=== PATIENT | male | born 1975 | race Caucasian/White ===

== ENCOUNTER → 2021-09-02 09:17 | Outpatient (BNVA) | payer OTHER, SELFPAY | PROVIDERS: PCP Nurse Practitioner Family; Visit Provider Family Medicine | DX: Z02.83 Encounter for blood-alcohol and blood-drug test (principal); S29.8XXA Other specified injuries of thorax, initial encounter; X58.XXXA Exposure to other specified factors, initial encounter | CPT/HCPCS: 71046; 71100; 80307 ==

== ENCOUNTER 2021-09-11 14:47 | Emergency (ER) | payer OTHER, SELFPAY ==
[2021-09-11 14:52] VITALS: BP 127/91; PULSE 85; RESP 15; TEMP 36.9; O2SAT 100; BMI 22.4
[2021-09-11 14:56] VITALS: BP 140/103; PULSE 82; RESP 15; TEMP 37; O2SAT 98
--- NOTE | 2021-09-11 15:17 | CTR_ITS ---
PROCEDURE INFORMATION: Exam: CT Abdomen And Pelvis With Contrast Exam date and time: 09/11/2021 3:17 PM Age: 46 years old Clinical indication: Constipation and nausea; Patient HX: Periumbillical pain for 2 days, n/v x 1 day, consipation x 1 day; Additional info: Centralized abdominal pain and nausea TECHNIQUE: Imaging protocol: Computed tomography of the abdomen and pelvis with contrast. Contrast material: OMNI 300; Contrast volume: 95 ml; Contrast route: INTRAVENOUS (IV); COMPARISON: CR XR ribs LT 2V* [id number] 09/02/2021 10:13 AM RADIATION DOSE METRICS: Total DLP (mGy-cm): 1188.44 FINDINGS: Liver: Multiple fluid density cysts in the liver, Hounsfield units less than 20. Additional hypodensities in the liver are too small to characterize but are most likely cysts as well. 1.5 cm low-density nodule in the left liver lobe, Hounsfield units measuring 50. Gallbladder and bile ducts: Normal. No calcified stones. No ductal dilation. Pancreas: Normal. No ductal dilation. Spleen: Normal. No splenomegaly. Adrenal glands: Normal. No mass. Kidneys and ureters: Fluid density cyst in the inferior left kidney, Hounsfield units less than 20. Additional hypodensities in both kidneys are too small to characterize but are likely cysts. No follow-up imaging is recommended. No renal calculus or hydronephrosis. Stomach and bowel: Scattered gas and stool throughout the colon to the rectum. The largest amount of stool is within the descending and sigmoid colon. The stomach and small bowel are unremarkable. No wall thickening or obstruction. Appendix: Multiple calcified appendicoliths in an otherwise unremarkable appendix. No periappendiceal fat stranding. Intraperitoneal space: Unremarkable. No free air. No significant fluid collection. Vasculature: Unremarkable. Lymph nodes: Prominent mesenteric lymph nodes are most likely reactive. Urinary bladder: Unremarkable as visualized. Reproductive: Enlarged prostate measuring 5.8 cm. Bones/joints: Unremarkable. No acute fracture. Soft tissues: Unremarkable. CT/CT abdomen pelvis w con* [id number] IMPRESSION: 1. No acute abnormality identified in the abdomen or pelvis. 2. Stool burden in the colon could indicate constipation in the right clinical setting. 3. Indeterminate 1.5 cm nodule in the left liver lobe. Further evaluation with non-emergent liver MRI is recommended. 4. Multiple calcified appendicoliths within an otherwise normal appearing appendix. COMMENTS: Consistent with the [employer]'s Incidental Findings Committee white paper (J Am Lisa Radiol 2018): Any incidental renal lesion less than 1 cm or classified as too small to characterize, or any incidental cystic renal lesion characterized as simple-appearing, is likely benign. No follow-up imaging is recommended for these lesions per consensus recommendations based on imaging criteria. Radiation Dose CTDIVOL = (mGy): DLP = 1188.44 (mGy-cm)
--- NOTE | 2021-09-11 15:19 | W.ED.ABDPA2 ---
HPI - Abdominal Pain General: Chief Complaint: Abdominal Pain Stated Complaint: Abdominal Pain Time Seen by Provider: 09/11/21 15:01 History of Present Illness: HPI narrative: Patient is a 46-year-old male who comes to the ED with abdominal pain. Pain started yesterday. Pain is located in the periumbilical and epigastric region of the abdomen. He rates the pain currently a 5 out of 10. He denies any past symptoms like this. He also reports having some nausea and had an episode of emesis this morning when he woke up. He has had decreased appetite and only drink about half a water bottle today. Patient also endorses being constipated and is unsure when his last bowel movement occurred. Patient says he took a stool softener this morning and it did not help him have a bowel movement. Denies any fever, chills, chest pain, shortness of breath, diarrhea or bladder symptoms. Associated Symptoms: Reports constipation, nausea and vomiting; Denies chills, diarrhea, dysuria, fever(s), hematochezia and hematuria Review of Systems Const: Reports: change in appetite (Decreased); Denies: fever(s), chills or fatigue Eyes: Denies: change in vision or eye discomfort ENMT: Denies: throat pain, odynophagia, nasal discharge or nasal congestion Card: Denies: chest pain, palpitations, edema, swelling of feet/ankles, dyspnea on exertion or orthopnea Resp: Denies: dyspnea, productive cough or non-productive cough GI: Reports: abdominal pain, nausea, vomiting and constipation; Denies: diarrhea or hematochezia : Denies: flank pain, difficulty urinating, dysuria or hematuria Musc: Denies: neck pain, back pain or extremity swelling Skin/Breast: Denies: rash or new lesions Neuro: Denies: headache(s), numbness in extremities or weakness in extremities PFS ED PFSH: Medical History Psychiatric care Social History Smoking and tobacco status: never smoked Second hand smoke exposure: No Physical Exam Const: COMMON NORMALS: no acute distress, patient oriented x3, healthy appearing and alert GENERAL APPEARANCE: cooperative and comfortable HENMT: COMMON NORMALS: normocephalic HEAD & SCALP: normocephalic MOUTH: Normal oral and palatal mucosa present THROAT: posterior oropharynx normal and uvula midline Eye: COMMON NORMALS: Equal, round and reactive pupils present PUPIL: Yes Equal, round and reactive pupils present Neck/C-Spine: COMMON NORMALS: supple GENERAL: Yes normal visual inspection Resp: COMMON NORMALS: normal respiratory effort, No retractions, No use of accessory muscles and clear to auscultation bilaterally AUSCULTATION: clear to auscultation bilaterally Cardio: COMMON NORMALS: regular rate, regular rhythm, S1 normal heart sound present, S2 normal heart sound present, No gallops present (Cardio), No clicks present (Cardio), No murmurs present (Cardio) and Peripheral pulses 2+ throughout RATE: regular rate RHYTHM: regular rhythm HEART SOUNDS: S1 normal heart sound present and S2 normal heart sound present PERIPHERAL PULSES: Peripheral pulses 2+ throughout GI: COMMON NORMALS: Normal to inspection, nondistended, normoactive bowel sounds present, Soft to palpation and no masses PALPATION: Yes Soft to palpation and Yes Tenderness to palpation present (GI) Details: other (Epigastric and periumbilical tenderness) : COMMON NORMALS: Yes no CVA tenderness BLADDER/KIDNEY EXAM: Yes no CVA tenderness Back/Pelvis: COMMON NORMALS: no CVA tenderness Extremity: COMMON NORMALS: normal to inspection Neuro: COMMON NORMALS: patient oriented x3 SENSORIUM/ORIENTATION: Yes alert GAIT: Yes Normal gait present Skin: GENERAL SKIN EXAM: dry skin Course Vital Signs: Vital signs: Vital Signs Temperature 98.6 F 09/11/21 15:26 Pulse Rate 82 09/11/21 14:56 Respiratory Rate 15 09/11/21 14:56 Blood Pressure 140/103 09/11/21 14:56 Pulse Oximetry 98 09/11/21 14:56 MDM - Abdominal Pain MDM Narrative: Medical decision making narrative: Patient is a 46-year-old male comes to the ED with abdominal pain and constipation. Vitals are stable. Patient appears nontoxic in no acute distress. He has some mild epigastric and periumbilical tenderness to palpation. The rest of exam is benign. Labs are unremarkable. CT of abdomen pelvis showed no acute intra-abdominal findings but noted large amount of stool in colon. And also noted liver mass was 1.5 cm in size and recommended an outpatient MRI for further evaluation. I told patient about CT findings and the liver mass and told him to discuss findings with his PCP and his PCP can get outpatient MRI set up form. Patient was diagnosed with constipation and discharged home with a prescription for MiraLAX. I told to continue taking his stool softener as well. He has an appointment with his PCP on September 15 for follow-up. Return ED precautions given. Patient understood and agreed with plan. Lab Data: Attestation: I reviewed the patient's lab results. Labs: Lab Results 09/11/21 09/11/21 09/11/21 15:50 15:50 15:50 WBC 8.4 10^3/uL 10^3/ uL (4.0-10.0) RBC 5.81 10^6/uL H 10 ^6/uL (4.1-5.3) Hgb 16.5 g/dL g/dL (11.7-16.6) Hct 49.9 % % (42.0-52.0) MCV 85.9 fl fl (80-94) MCH 28.4 pg pg (28.0-34.0) MCHC 33.1 g/dL g/dL (30.0-36.0) RDW 12.9 % % (12.1-15.1) Plt Count 209 10^3/cmm 10^3 /cmm (130-400) MPV 9.9 fL fL (7.4-10.4) Neut % (Auto) 66.0 % % Lymph % (Auto) 20.1 % % Coffee % (Auto) 12.7 % % Eos % (Auto) 0.4 % % Baso % (Auto) 0.4 % % Neut # (Auto) 5.57 10^3/uL 10^3 /uL (1.8-7.7) Lymph # (Auto) 1.7 10^3/uL 10^3/ uL (0.8-4.8) Coffee # (Auto) 1.1 10^3/uL H 10^ 3/uL (0.2-0.9) Eos # (Auto) 0.0 10^3/uL 10^3/ uL (0.0-0.8) Baso # (Auto) 0.0 10^3/uL 10^3/ uL (0.0-0.1) Nucleated RBC % (a uto) 0 % % Nucleated RBCs # 0.0 /100WBC /100W BC Sodium 136 mmol/L mmol/L (136-145) Potassium 4.1 mmol/L mmol/L (3.5-5.1) Chloride 100 mmol/L mmol/L (98-107) Carbon Dioxide 29 mmol/L mmol/L (22-29) Anion Gap 11.1 (5-19) BUN 9 mg/dL mg/dL (6-20) Creatinine 0.7 mg/dL mg/dL (0.7-1.2) GFR Calculation 122.0 mL/min mL/m in (90-130) Glucose 91 mg/dL mg/dL (65-115) Calculated Osmolal ity 280 mOsm/kg L mOs m/kg (285-295) Calcium 11.5 mg/dL H mg/d L (8.5-10.5) Total Bilirubin 0.4 mg/dL mg/dL (0.15-1.2) AST 16 U/L U/L (0-40) ALT 16 U/L U/L (0-41) Alkaline Phosphata se 119 IU/L IU/L (40-130) Total Protein 7.3 g/dL g/dL (6.6-8.7) Albumin 4.3 g/dL g/dL (3.5-5.2) Globulin 3.0 g/dL g/dL (1.3-4.6) Lipase 19 U/L U/L (13-60) Urine Color Yellow (Yellow) Urine Appearance Hazy A (CLEAR) Urine pH 5 (5-7) Ur Specific Gravit y 1.030 (1.005-1.030) Urine Protein Neg (Negative) Urine Glucose (UA) Norm (Normal) Urine Ketones Negative (Negative) Urine Blood 2+ H (Negative) Urine Nitrate Negative (Negative) Urine Bilirubin 1+ H (Negative) Urine Urobilinogen 1 mg/dL H mg/dL (Negative) Ur Leukocyte Darby ase Negative (Negative) Urine RBC 0-4 /hpf H /hpf (0-2) Urine WBC 0-4 /hpf H /hpf (0-5) Ur Squamous Epith Cells 0-4 /hpf H /hpf (0-5) Calcium Oxalate Cr ystal 5-10 /hpf H /hpf Amorphous Sediment Not Reportable Urine Bacteria Trace /hpf /hpf (NONE) Urine Mucus 2+ /hpf /hpf Imaging Data ^: CT Abd/Pel: Attestation: I personally reviewed and interpreted this imaging study as follows: Radiologist's impression: [facility] [address] [place] [address] CT Scan Report Signed Patient: Mani Kaiser Unit #: [id number] : [id number] Age/Sex: 46 / M ADM Date: 09/11/21 Loc: ER Room/Bed: Attending Dr: Ordering Provider/Ordering MD: Tahir Patel Date of Service: 09/11/21 Procedure(s): CT abdomen pelvis w con* [id number] Accession Number(s): [id number] Report Number: [id number] PROCEDURE INFORMATION: Exam: CT Abdomen And Pelvis With Contrast Exam date and time: 09/11/2021 3:17 PM Age: 46 years old Clinical indication: Constipation and nausea; Patient HX: Periumbillical pain for 2 days, n/v x 1 day, consipation x 1 day; Additional info: Centralized abdominal pain and nausea TECHNIQUE: Imaging protocol: Computed tomography of the abdomen and pelvis with contrast. Contrast material: OMNI 300; Contrast volume: 95 ml; Contrast route: INTRAVENOUS (IV); COMPARISON: CR XR ribs LT 2V* [id number] 09/02/2021 10:13 AM RADIATION DOSE METRICS: Total DLP (mGy-cm): 1188.44 FINDINGS: Liver: Multiple fluid density cysts in the liver, Hounsfield units less than 20. Additional hypodensities in the liver are too small to characterize but are most likely cysts as well. 1.5 cm low-density nodule in the left liver lobe, Hounsfield units measuring 50. Gallbladder and bile ducts: Normal. No calcified stones. No ductal dilation. Pancreas: Normal. No ductal dilation. Spleen: Normal. No splenomegaly. Adrenal glands: Normal. No mass. Kidneys and ureters: Fluid density cyst in the inferior left kidney, Hounsfield units less than 20. Additional hypodensities in both kidneys are too small to characterize but are likely cysts. No follow-up imaging is recommended. No renal calculus or hydronephrosis. Stomach and bowel: Scattered gas and stool throughout the colon to the rectum. The largest amount of stool is within the descending and sigmoid colon. The stomach and small bowel are unremarkable. No wall thickening or obstruction. Appendix: Multiple calcified appendicoliths in an otherwise unremarkable appendix. No periappendiceal fat stranding. Intraperitoneal space: Unremarkable. No free air. No significant fluid collection. Vasculature: Unremarkable. Lymph nodes: Prominent mesenteric lymph nodes are most likely reactive. Urinary bladder: Unremarkable as visualized. Reproductive: Enlarged prostate measuring 5.8 cm. Bones/joints: Unremarkable. No acute fracture. Soft tissues: Unremarkable. CT/CT abdomen pelvis w con* [id number] IMPRESSION: 1. No acute abnormality identified in the abdomen or pelvis. 2. Stool burden in the colon could indicate constipation in the right clinical setting. 3. Indeterminate 1.5 cm nodule in the left liver lobe. Further evaluation with non-emergent liver MRI is recommended. 4. Multiple calcified appendicoliths within an otherwise normal appearing appendix. COMMENTS: Consistent with the [employer]'s Incidental Findings Committee white paper (J Am Lisa Radiol 2018): Any incidental renal lesion less than 1 cm or classified as too small to characterize, or any incidental cystic renal lesion characterized as simple-appearing, is likely benign. No follow-up imaging is recommended for these lesions per consensus recommendations based on imaging criteria. Radiation Dose CTDIVOL = (mGy): DLP = 1188.44 (mGy-cm) Dictated By: Ga Koenig Signed By: Ga Koenig Signed Date/Time: 09/11/21 1651 DD/ [id number] Discharge Plan Discharge Patient Disposition: Home Clinical Impression: Constipation Qualifiers: Constipation type: unspecified constipation type Qualified Code(s): K59.00 - Constipation, unspecified Condition: Stable Prescriptions: New Miralax 17 gram/dose powder 17 g PO DAILY 4 Days Qty: 119 RF: 0 ondansetron 4 mg tablet,disintegrating 4 mg PO Q8H PRN (Reason: nausea and vomiting) Qty: 15 RF: 0 No Action hydrocodone-acetaminophen 5-325 mg tablet 1 tab PO BID PRN (Reason: pain) 7 Days Qty: 14 RF: 0 Active-Pk Caps 2 cap PO QAM RF: 0 Tylenol Ex Str Rapid Release 500 mg Tablet 1,000 mg PO Q4H PRN (Reason: Pain) RF: 0 Discharge Orders: Discharge ED (Routine); Ordered 09/11/21 Ordered By: Tahir Patel Referrals: TYRELL Hoff, [employer] [Primary Care Provider] - Discharge Diet: Regular Discharge Activity: Increase activity as tolerated Patient Instructions: Constipation (DC), High Fiber Diet (ED) Activity Restrictions/Additional Instructions: Follow-up with medical provider as directed at your next scheduled appointment with your PCP this coming Wednesday. Continue taking your stool softener. take medications as prescribed. Drink plenty of fluids and stay hydrated. Return to the ER or your medical provider if condition worsens. Please read and understand discharge instructions. Thank you for choosing [facility] for your healthcare needs today. Please realize this is an emergency room and that we are providing you with a medical screening exam and this may not be complete and all inclusive of all the testing and or work up that you may need to determine your ailment or severity of your illness. It is very important that you follow up as instructed or that you return to the Emergency Department should you have concerns or if your condition changes or worsens in any way. Coding Level of Care Code ED [facility] for Jesica Roberson Exam Comprehensive
[2021-09-11 15:26] VITALS: TEMP 37
[2021-09-11] MEDS: iohexol 300 mg/mL 100 mL Btl IV (16:07)
[2021-09-11 16:11] LABS: Basophils % 0.4 %; Eosinophils % 0.4 %; Hematocrit 49.9 % (42.0-52.0); Hemoglobin 16.5 g/dL (11.7-16.6); Lymphocytes # 1.7 10^3/uL (0.8-4.8); Lymphocytes % 20.1 %; Mean Corpuscular HGB Conc 33.1 g/dL (30.0-36.0); Mean Corpuscular Hemoglobin 28.4 pg (28.0-34.0); Mean Corpuscular Volume 85.9 fl (80-94); Mean Platelet Volume 9.9 fL (7.4-10.4); Monocytes # 1.1 10^3/uL (0.2-0.9); Monocytes % 12.7 %; Neutrophils # 5.57 10^3/uL (1.8-7.7); Nucleated Red Blood Cells % 0 %; Platelet Count 209 10^3/cmm (130-400); Red Blood Count 5.81 10^6/uL (4.1-5.3); Red Cell Distribution Width 12.9 % (12.1-15.1); White Blood Count 8.4 10^3/uL (4.0-10.0)
[2021-09-11 16:27] LABS: Alanine Aminotransferase 16 U/L (0-41); Albumin Level 4.3 g/dL (3.5-5.2); Alkaline Phosphatase 119 IU/L (40-130); Anion Gap 11.1 (5-19); Aspartate Amino Transferase 16 U/L (0-40); Blood Urea Nitrogen 9 mg/dL (6-20); Calcium 11.5 mg/dL (8.5-10.5); Carbon Dioxide 29 mmol/L (22-29); Chloride 100 mmol/L (98-107); Creatinine Clr Calc Pharmacy 148.5023; Glucose 91 mg/dL (65-115); Lipase 19 U/L (13-60); Osmolality Calculated 280 mOsm/kg (285-295); Potassium 4.1 mmol/L (3.5-5.1); Sodium 136 mmol/L (136-145); Total Bilirubin 0.4 mg/dL (0.15-1.2); Total Protein 7.3 g/dL (6.6-8.7)
[2021-09-11] MEDS: sodium chloride 0.9% 1,000 ML 999 ML IV (16:38)
[2021-09-11 16:44] LABS: Blood Urine 2+ (Negative); Glucose Urine UA Norm (Normal); Ketones Urine Negative (Negative); Protein Urine Neg (Negative); Urine Appearance Hazy (CLEAR); Urine Color Yellow (Yellow); pH Urine 5 (5-7)
[2021-09-11 16:45] LABS: Add Urine Culture? No; Add Urine Microscopic? YES; Bacteria Urine TRACE /hpf; Bilirubin Urine 1+ (Negative); Leukocyte Esterase Urine Negative (Negative); Mucus Urine 2+ /hpf; Nitrate Urine Negative (Negative); RBC Urine 0-4 /hpf (0-2); Squamous Epithelial Cell Urine 0-4 /hpf (0-5); Urobilinogen Urine 1 mg/dL (Negative); WBC Urine 0-4 /hpf (0-5)
== END 2021-09-11 17:39 | disposition home or self-care (01) ==
PROVIDERS: Emergency Provider Physician Assistant; PCP Nurse Practitioner Family
DX: K59.00 Constipation, unspecified (principal)
CPT/HCPCS: 74177; 80053; 81001; 83690; 85025; 96360; 99283; 99291; J7030; Q9967

== ENCOUNTER → 2024-12-06 11:58 | Outpatient (BNVA) | payer OTHER, SELFPAY | PROVIDERS: PCP Nurse Practitioner Family; Visit Provider Psychiatry & Neurology Psychiatry | DX: F33.1 Major depressive disorder, recurrent, moderate (principal) | CPT/HCPCS: 80061; 83036 ==